=== PATIENT | female | born 1990 | race Caucasian/White ===

== ENCOUNTER 2019-05-23 20:36 | Emergency (ER) | payer MEDICAID ==
[~2019-05-23] VITALS: Ht 157.5 cm; Wt 90.3 kg
[2019-05-23 20:40] VITALS: BP 122/77
--- NOTE | 2019-05-23 20:47 | NUR ---
PT AMBULATED TO BED 7. PROVIDING URINE.
--- NOTE | 2019-05-23 20:57 | NUR ---
28/F PRESENTS TO ED, C/O SHARP, BURNING EPIGASTRIC PAIN, RADIATING DIFFUSELY AND TO MIDCHEST, X1 DAY. PT REPORTS NAUSEA, DENIES VOMITING, CONSTIPATION OR DIARRHEA. REPORTS LOOSE STOOL. PT AWAKE AND ALERT, SKIN NORMAL WARM AND DRY, LUNG SOUNDS CLEAR BL. BS ACTIVE X4, ABD SOFT ROUND TENDER DIFFUSELY, REPORTS RLQ TENDERNESS. HX GERD OTC MOTRIN AND OMEPREZOLE WITHOUT RELIEF.
--- NOTE | 2019-05-23 21:02 | NUR ---
Dr. Villasenor examining patient.
[2019-05-23] MEDS ORDERED: ALUMINUM HYD/MAG/SIMETHICONE 30 ML, DICYCLOMINE HCL LIQUID 20 MG, LIDOCAINE VISCOUS 2% ... PO ONE ×3 (21:05)
--- NOTE | 2019-05-23 21:12 | NUR ---
Ultrasound at bedside.
[2019-05-23 21:29] LABS: HEMATOCRIT 38.1 % (36-48); HEMOGLOBIN 12.8 g/dL (12.0-16.0); MEAN CORPUSCULAR HEMOGLOBIN 29 pg (27-31); MEAN CORPUSCULAR HGB CONC 34 g/dL (33-37); MEAN CORPUSCULAR VOLUME 86.1 fL (80-94); PLATELET COUNT (AUTO) 242 K/uL (140-450); RED BLOOD CELL COUNT(AUTO) 4.43 MIL/uL (4.20-5.40); WHITE BLOOD COUNT (AUTO) 16.9 K/uL (4.8-10.8)
[2019-05-23 21:31] LABS: APPEARANCE,URINE CLEAR (CLEAR); BILIRUBIN,URINE NEGATIVE (NEGATIVE); BLOOD, URINE 1+ (NEGATIVE); COLOR,URINE YELLOW (YELLOW); LEUKOCYTE ESTERASE ,URINE TRACE (NEGATIVE); NITRITE, URINE NEGATIVE (NEGATIVE); UGLUCOSE NEGATIVE (NEGATIVE)
[2019-05-23 21:45] LABS: ALBUMIN 3.9 g/dL (3.4-5.0); ANION GAP 11.6 (8-16); CARBON DIOXIDE 26.8 mmol/L (21-32); CREATININE 0.9 mg/dL (0.6-1.3); POTASSIUM 3.4 mmol/L (3.5-5.1); TOTAL BILIRUBIN 0.2 mg/dL (0.0-1.0)
[2019-05-23 21:46] LABS: EOSINOPHILS % (MANUAL) 3 % (0-4); LYMPHOCYTES % (MANUAL) 14 % (20-46)
[2019-05-23 21:50] LABS: RBC,URINE 0-5 /HPF (0-5); WBC,URINE 0-5 /HPF (0-5)
[2019-05-23 22:30] VITALS: BP 124/74
--- NOTE | 2019-05-23 22:30 | NUR ---
Patient discharged with v/s stable. Written and verbal after care instructions given and explained. Patient alert, oriented and verbalized understanding of instructions. Ambulatory with steady gait. All questions addressed prior to discharge. ID band removed. Patient advised to follow up with PMD. Rx of MOTRIN, PRILOSEC, NORCO given. Patient educated on indication of medication including possible reaction and side effects. Opportunity to ask questions provided and answered.
== END 2019-05-23 22:30 | disposition home or self-care (01) ==
LOC: MED 20:36
DX: R10.13 Epigastric pain (principal)
CPT/HCPCS: 36415; 76705; 80053; 81001; 83690; 85025; Q0092; 99284

== ENCOUNTER 2021-04-18 08:15 | Inpatient (IN) | payer MEDICAID, SELFPAY ==
[~2021-04-18] VITALS: Ht 154.9 cm; Wt 99.8 kg
--- NOTE | 2021-04-18 08:24 | NUR ---
Pt W/C assisted to ER bed 2.
--- NOTE | 2021-04-18 08:27 | NUR ---
Pt ambulated to restroom for UA collection.
[2021-04-18 08:28] VITALS: BP 134/85
--- NOTE | 2021-04-18 08:47 | NUR ---
Dr. Daugherty at pt bedside for further evaluation.
[2021-04-18] MEDS ORDERED: MORPHINE SULFATE 4 MG/ML SYR IVP ONE ×2 (08:50→10:40)
[2021-04-18] MEDS ORDERED: NACL 0.9% 1,000 ML IV ONE (08:50)
[2021-04-18] MEDS ORDERED: ONDANSETRON 4 MG/2 ML VIAL IVP ONE (08:50)
--- NOTE | 2021-04-18 09:04 | NUR ---
PT TAKEN TO CT VIA SIVA
--- NOTE | 2021-04-18 09:06 | NUR ---
BLOODWORK WALKED OVER TO LAB
--- NOTE | 2021-04-18 09:18 | NUR ---
Pt taken to ER bed 2 via daniel.
[2021-04-18 09:32] LABS: BASOPHILS # (AUTO) 0.1 K/uL (0.00-0.22); BASOPHILS % (AUTO) 0.3 % (0.0-2.0); EOSINOPHILS % (AUTO) 0.1 % (0.0-4.0); HEMATOCRIT 41.3 % (36-48); HEMOGLOBIN 14.1 g/dL (12.0-16.0); LYMPHOCYTES # (AUTO) 2.6 K/uL (2.5-16.5); LYMPHOCYTES % (AUTO) 14.5 % (20.5-51.1); MEAN CORPUSCULAR HEMOGLOBIN 29 pg (27-31); MEAN CORPUSCULAR HGB CONC 34 g/dL (33-37); MEAN CORPUSCULAR VOLUME 86.1 fL (80-94); MONOCYTES # (AUTO) 1.4 K/uL (0.8-1.0); MONOCYTES % (AUTO) 7.5 % (1.7-9.3); NEUTROPHILS # (AUTO) 14.2 K/uL (1.8-7.7); NEUTROPHILS % (AUTO) 77.6 % (42.2-75.2); PLATELET COUNT (AUTO) 293 K/uL (140-450); WHITE BLOOD COUNT (AUTO) 18.3 K/uL (4.8-10.8)
[2021-04-18 09:43] LABS: ALBUMIN 4.5 g/dL (3.4-5.0); ANION GAP 14.6 (8-16); CARBON DIOXIDE 26.1 mmol/L (21-32); CREATININE 0.8 mg/dL (0.6-1.3); POTASSIUM 3.7 mmol/L (3.5-5.1); TOTAL BILIRUBIN 0.4 mg/dL (0.0-1.0)
[2021-04-18] MEDS ORDERED: PIPERACILLIN/TAZOBACTAM 4.5 GM in DEXTROSE 5% 100 ML IV ONE (09:45)
[2021-04-18] MEDS ORDERED: PIPERACILLIN/TAZOBACTAM 4.5 GM VIAL IV ONE (09:47)
--- NOTE | 2021-04-18 09:55 | NUR ---
RIAN JIMENEZ SWAB WALKED OVER TO LAB
[2021-04-18] MEDS ORDERED: SYN.1 PO (10:02)
[2021-04-18 10:09] LABS: APPEARANCE,URINE HAZY (CLEAR); BILIRUBIN,URINE NEGATIVE (NEGATIVE); BLOOD, URINE TRACE-I (NEGATIVE); COLOR,URINE YELLOW (YELLOW); LEUKOCYTE ESTERASE ,URINE NEGATIVE (NEGATIVE); NITRITE, URINE NEGATIVE (NEGATIVE); UGLUCOSE NEGATIVE (NEGATIVE)
--- NOTE | 2021-04-18 10:32 | NUR ---
Pt resting, HOB elevated for comfort, VSS, will continue to monitor.
[2021-04-18 10:38] LABS: RBC,URINE 0-5 /HPF (0-5); WBC,URINE 0-5 /HPF (0-5)
[2021-04-18] MEDS ORDERED: POTASSIUM CHLORIDE 10 MEQ TABER PO PRN (10:40)
[2021-04-18] MEDS ORDERED: DOCUSATE SODIUM 100 MG GELCAP PO PRN (10:40)
[2021-04-18] MEDS ORDERED: ACETAMINOPHEN 325 MG TAB PO PRN (10:40)
[2021-04-18] MEDS ORDERED: guaiFENesin DM 200/20 MG-10 ML 10 ML UDC PO PRN (10:40)
[2021-04-18] MEDS ORDERED: ZOLPIDEM 5 MG TAB PO PRN (10:40)
--- NOTE | 2021-04-18 10:46 | NUR ---
XRAY BEDSIDE WITH PT
[2021-04-18] MEDS ORDERED: NACL 0.9% 1,500 ML IV SCH (11:00)
[2021-04-18] MEDS: ONDANSETRON 4 MG/2 ML VIAL IM/IVP PRN ×2 (11:03→15:28)
[2021-04-18] MEDS: DEXT 5% /NACL 0.9% 1,000 ML IV SCH ×2 (11:04→17:53)
--- NOTE | 2021-04-18 11:06 | NUR ---
US BEDSIDE WITH PT
[2021-04-18 11:17] LABS: BARBITURATE, URINE NEGATIVE ng/ml (NEG <=200); BENZODIAZEPINE, URINE NEGATIVE ng/mL (NEG <=200); CANNABINOID, URINE NEGATIVE ng/mL (NEG <=50); COCAINE, URINE NEGATIVE ng/mL (NEG <=300); OPIATE, URINE NEGATIVE ng/mL (NEG <=2000); PHENCYCLIDINE SCREEN,URINE NEGATIVE ng/mL (NEG <=25)
--- NOTE | 2021-04-18 11:40 | NUR ---
LAB BEDSIDE WITH PT
[2021-04-18 11:41] LABS: FREE T4 (FREE THYROXINE) 0.96 ng/dL (0.76-1.46); MAGNESIUM 1.8 mg/dL (1.8-2.4); THYROID STIMULATING HORMONE 0.74 uIU/mL (0.34-3.74)
--- NOTE | 2021-04-18 12:22 | NUR ---
PT RESTING BEDSIDE WITH EYES CLOSED. LIGHTS TURNED OFF FOR PT. BEDRAILS X2 UP AND BED IN LOWEST POSITION. EQUAL RISE AND FALL OF CHEST NOTED. VITAL SIGNS STABLE. WILL CONTUINE TO MONITOR
[2021-04-18 12:56] LABS: PROTHROMBIN TIME 9.9 secs (10.8-13.4)
--- NOTE | 2021-04-18 13:10 | NUR ---
PT RESTING, HOB LAYED FLAT FOR COMFORT, VSS, WILL CONTINUE TO MONITOR.
--- NOTE | 2021-04-18 13:42 | NUR ---
RECEIVED PATIENT REPORT FROM ER NURSE VIA TELEPHONE. AWAITING FOR PATIENT TO ARRIVE TO THE UNIT.
--- NOTE | 2021-04-18 13:50 | NUR ---
Patient will be admitted to care of CARLOS STRICKLAND. Admited to TELE. Will go to room 120B. Belongings list completed. Report to EN. NABILA
[2021-04-18 13:55] VITALS: BP 115/71
--- NOTE | 2021-04-18 13:55 | NUR ---
RECEIVED PATIENT FROM ER NURSE. PATIENT DIAGNOSIS IS ACUTE APPENDICITIS. PT IS AOX4, ABLE TO MAKE NEEDS KNOWN. RESPIRATIONS EVEN AND UNLABORED. ON ROOM AIR NO RESPIRATORY DISTRESS NOTED. SKIN IS WARM, DRY, AND INTACT. IV SITE ON LAC 20G INFUSING FLUIDS WELL. INTACT AND PATENT. ABD SOFT, ROUND, AND TENDER AT EPIGASTRIC REGION. COMPLAINS OF PAIN WHEN PALPATED 10/10. WILL MEDICATE WITH PRN PAIN MEDICATIONS ORDERED. AWAITING FOR SURGICAL INTERVENTION BY DR. WILLAMS. PLAN OF CARE DISCUSSED. SAFETY PRECAUTIONS IN PLACE. CALL LIGHT WITHIN REACH. WILL CONTINUE TO MONITOR.
--- NOTE | 2021-04-18 15:28 | NUR ---
PATIENT COMPLAINED OF NAUSEA. ADMINISTERED ZOFRAN IVP PRN PER MD ORDERED.
[2021-04-18 16:00] VITALS: BP 119/77
[2021-04-18] MEDS: PIPERACILLIN/TAZOBACTAM 3.375 GM in DEXTROSE 5% 50 ML IV SCH ×2 (17:53→23:15)
[2021-04-18] MEDS: MORPHINE SULFATE 2 MG/ML SYR IVP PRN (17:56)
--- NOTE | 2021-04-18 17:56 | NUR ---
PATIENT COMPLAINED OF 10/10 ABD PAIN. ADMINISTERED PRN PAIN MEDICATIONS PER MD ORDERED.
[2021-04-18] MEDS ORDERED: PIPERACILLIN/TAZOBACTAM 3.375 GM in DEXTROSE 5% 50 ML IV SCH (18:00)
--- NOTE | 2021-04-18 18:17 | NUR ---
PATIENT COMPLAINED OF FEELING HOT. ASSESS TEMPERATURE AND PATIENT'S TEMP WAS 100.7 ADMINISTERED TYLENOL PER MD ORDERED.
--- NOTE | 2021-04-18 19:25 | NUR ---
ENDORSED TO ARSON AND BOMB INVESTIGATOR NURSE FOR CONTINUITY OF CARE. PT IS STABLE.
--- NOTE | 2021-04-18 19:30 | NUR ---
RECEIVED CARE AND REPORT FROM DAYSHIFT RN. PATIENT TRACKING WITH EYES, ALERT AND ORIENTED X4 TO PERSON, PLACE, TIME AND EVENT. [facility] 15. PATIENT RESTING IN THE BED, HOB 30 DEGREES, LAYING IN A POSITION OF COMFORT. PATIENT CONNECTED TO TELE MONITOR AT BEDSIDE W/CONTINUOUS PULSE OXIMETER. PATIENT OXYGEN SATURATION 97%, RR 16, PATIENT CURRENTLY DENIES SOB AND DENIES DIFFICULTY BREATHING WHEN ASKED. PATIENT TELE MONITOR CURRENTLY SHOWS ST 105 HR, VS STABLE, NO SIGNS OF DISTRESS OBSERVED WHILE AT BEDSIDE. PATIENT HEART AND LUNGS AUSCULTATED, S1, S2 HEARD, LUNG SOUNDS CLEAR, EQUAL AND BILATERALLY. PATIENT IV SITE INCLUDES LEFT AC 20G. IV DRESSING DRY, SITE INTACT AND FLUSHING WELL, NO INFILTRATION OR PAIN AT SITE. PATIENT CURRENTLY ABLE TO USE BEDSIDE COMMODE WITH RN ASSISTANCE. SKINS INTACT AND EDUCATED PATIENT ON THE IMPORTANCE OF PREVENTING SKIN BREAKDOWN/PREVENTING PRESSURE SORES. PATIENT CURRENTLY BEING OFFLOADED WITH USE OF PILLOWS AND FREQUENT REPOSITIONING PROVIDED Q2. PROMOTING A RESTFUL HEALING ENVIRONMENT WITH DECREASED STIMULI IN THE ROOM. WILL CONTINUE TO REASSESS OFTEN, CLOSELY MONITOR AND FREQUENTLY ROUND THROUGHOUT THE SHIFT.
[2021-04-18 20:00] VITALS: BP 122/75
--- NOTE | 2021-04-18 20:46 | NUR ---
PATIENT RESTING IN A POSITION OF COMFORT, AIRWAY OPEN, CLEAR AND MAINTAINABLE, ROOM AIR, OXYGEN SATURATION 97%.NO OBVIOUS SIGNS OF DISTRESS OBSERVED WHILE AT BEDSIDE. VS STABLE. WILL CONTINUE TO CLOSELY MONITOR AND FREQUENTLY ROUND.
[2021-04-18] MEDS: HYDROcodone/APAP 7.5/325 MG 1 TAB PO PRN (21:19)
--- NOTE | 2021-04-18 21:19 | NUR ---
PRN PAIN MEDICATION GIVEN TO PATIENT ORDERED BY MD. VS STABLE, NO OBVIOUS SIGNS OF DISTRESS OBSERVED. WILL CONTINUE TO CLOSELY MONITOR.
--- NOTE | 2021-04-18 22:20 | NUR ---
PATIENT REASSESSED WITH PAIN, PATIENT STATED FEELING DECREASED PAIN AND ABLE TO REST MORE COMFORTABLY. INTERVENTIONS EFFECTIVE. VS STABLE, WILL CONTINUE TO CLOSELY MONITOR AND FREQUENTLY ROUND.
[2021-04-19] VITALS: BP 102/64
--- NOTE | 2021-04-19 00:08 | NUR ---
SCHEDULED MEDICATIONS GIVEN ORDERED BY MD, TOLERATING THERAPIES WELL. VS STABLE, NO OBVIOUS SIGNS OF DISTRESS OBSERVED WHILE AT BEDSIDE. WILL CONTINUE TO CLOSELY MONITOR AND FREQUENTLY ROUND.
[2021-04-19] MEDS: DEXT 5% /NACL 0.9% 1,000 ML IV SCH ×4 (00:35→21:30)
[2021-04-19] MEDS: HYDROcodone/APAP 7.5/325 MG 1 TAB PO PRN ×4 (01:30→22:27)
--- NOTE | 2021-04-19 01:30 | NUR ---
PRN PAIN MEDICATION GIVEN TO PATIENT FOR PAIN. VS STABLE, NO SIGNS OF DISTRESS OBSERVED WHILE AT BEDSIDE. WILL CONTINUE TO CLOSELY MONITOR AND FREQUENTLY ROUND.
--- NOTE | 2021-04-19 02:30 | NUR ---
PATIENT REASSESSED, STATED FEELING DECREASED PAIN, MORE COMFORTABLE TO CONTINUE TO TRY AND REST. PATIENT STATED THAT THE NORCO HELPS BETTER WITH THE PAIN THAN THE MORPHINE. INTERVENTIONS EFFECTIVE. WILL CONTINUE TO CLOSELY MONITOR AND FREQUENTLY ROUND.
[2021-04-19 04:00] VITALS: BP 125/68
--- NOTE | 2021-04-19 04:12 | NUR ---
MORNING CARE, SCHEDULED MEDICATIONS, SAFETY CHECKS, HYGIENE AND REPOSITIONING PROVIDED. VS STABLE, NO OBVIOUS SIGNS OF DISTRESS OBSERVED WHILE AT BEDSIDE. WILL CONTINUE TO CLOSELY MONITOR AND FREQUENTLY ROUND.
[2021-04-19] MEDS: PIPERACILLIN/TAZOBACTAM 3.375 GM in DEXTROSE 5% 50 ML IV SCH ×4 (05:13→23:35)
[2021-04-19 05:23] LABS: ANION GAP 9.9 (8-16); CARBON DIOXIDE 28.5 mmol/L (21-32); CREATININE 0.8 mg/dL (0.6-1.3); POTASSIUM 3.4 mmol/L (3.5-5.1)
[2021-04-19 05:42] LABS: BASOPHILS % (AUTO) 0.2 % (0.0-2.0); HEMATOCRIT 36.2 % (36-48); HEMOGLOBIN 12.2 g/dL (12.0-16.0); LYMPHOCYTES # (AUTO) 3.1 K/uL (2.5-16.5); LYMPHOCYTES % (AUTO) 17.6 % (20.5-51.1); MEAN CORPUSCULAR HEMOGLOBIN 29 pg (27-31); MEAN CORPUSCULAR HGB CONC 34 g/dL (33-37); MEAN CORPUSCULAR VOLUME 86.7 fL (80-94); MONOCYTES # (AUTO) 1.4 K/uL (0.8-1.0); NEUTROPHILS # (AUTO) 13.2 K/uL (1.8-7.7); NEUTROPHILS % (AUTO) 74.2 % (42.2-75.2); PLATELET COUNT (AUTO) 233 K/uL (140-450); RED BLOOD CELL COUNT(AUTO) 4.18 MIL/uL (4.20-5.40); RED CELL DISTRIBUTION WIDTH 13.5 % (11.6-13.7); WHITE BLOOD COUNT (AUTO) 17.7 K/uL (4.8-10.8)
--- NOTE | 2021-04-19 07:10 | NUR ---
RECEIVED BEDSIDE REPORT FROM DAY SHIFT NURSE FOR CONTINUITY OF CARE. PT IS AWAKE AND ALERT. A&OX4. ON RA WITH BREATHING UNLABORED. SR ON TELE MONITORING. SKIN IS WARM, DRY, AND INTACT. IV IS IN THE LEFT AC 20 GAUGE WITH FLUIDS INFUSING. PT IS STABLE AT THIS TIME. DENIES PAIN. PT IS STABLE. Addendum: 04/19/21 at 1789 by Ceci Beebe RN MANAGER OF PRODUCT NURSE
--- NOTE | 2021-04-19 07:30 | NUR ---
REPORT AND CARE ENDORSED TO GERARDO AU, VS TRENT.
--- NOTE | 2021-04-19 07:50 | NUR ---
PATIENT HAS BEEN SCREENED AND CATEGORIZED MODERATE NUTRITION RISK. PATIENT WILL BE SEEN WITHIN 3-5 DAYS OF ADMISSION. 04/21/2021-04/23/[address]
[2021-04-19 08:00] VITALS: BP 104/67
--- NOTE | 2021-04-19 08:38 | NUR ---
PT STATES PAIN IN THE ABDOMEN AT A SCALE OF 8/10, RADIATING TO THE BACK. ACHING IN CHARACTERISTIC. PT WAS GIVEN NORCO FOR PAIN. WILL CONTINUE TO MONITOR PAIN. POTASSIUM CHLORIDE 40 MEQ WAS GIVEN FOR POTASSIUM OF 3.4. MEDICATION EDUCATION WAS PROVIDED AND PT VERBALIZED UNDERSTANDING.
[2021-04-19] MEDS: PANTOPRAZOLE 40 MG TABEC PO SCH (08:39)
--- NOTE | 2021-04-19 08:58 | NUR ---
MISTY, PAPER CUTTER, INFORMED ME THAT THE SURGERY FOR PT IS MOVED UP TO 1130 AM INSTEAD OF 1535 PM.
--- NOTE | 2021-04-19 11:00 | NUR ---
PT IS SITTING AT BEDSIDE WITH VISITOR. NO DISTRESS NOTED. PT DENIES PAIN AT THIS TIME. PT ALSO DENIES N/V. BREATHING IS UNLABORED ON RA. WILL CONTINUE TO MONITOR.
[2021-04-19] MEDS ORDERED: PROPOFOL 200 MG/20 ML VIAL IV ONE (11:07)
[2021-04-19] MEDS ORDERED: MIDAZOLAM 2 MG/2 ML VIAL ONE (11:07)
[2021-04-19] MEDS ORDERED: fentaNYL citrate 0.05 MG/ML VIAL ONE (11:07)
[2021-04-19] MEDS ORDERED: SUCCINYLCHOLINE CHLORIDE 200 MG/10 ML VIAL IVP ONE (11:08)
[2021-04-19] MEDS ORDERED: LIDOCAINE 1% 500 MG/50 ML VIAL ONE (11:42)
[2021-04-19] MEDS ORDERED: BUPIVACAINE-MPF/EPI 0.25% 30 ML VIAL INJ ONE (11:42)
[2021-04-19] MEDS: ONDANSETRON 4 MG/2 ML VIAL IM/IVP PRN ×2 (11:53→18:15)
[2021-04-19 12:00] VITALS: BP 113/73
--- NOTE | 2021-04-19 12:03 | NUR ---
SURGEON, DR. SIERRA, AT BEDSIDE ASSESSING PT AND EXPLAINING PROCEDURE. ALL QUESTIONS ANSWERED. CONSENT OBTAINED.
--- NOTE | 2021-04-19 12:30 | NUR ---
MOTORIZED SQUAD COMMANDING OFFICER AT BEDSIDE TO ENERGY AND CONSERVATION TECHNICIAN PT FOR SURGERY. PT IS STABLE AT THIS TIME. ANSWERING QUESTIONS APPROPRIATELY. NO DISTRESS NOTED. PT WENT TO OR VIA BED.
[2021-04-19] MEDS ORDERED: ROCURONIUM 50 MG/5 ML VIAL IV ONE (12:45)
[2021-04-19] MEDS ORDERED: SEVOFLURANE 250 ML BTL INH ONE (12:45)
[2021-04-19] MEDS ORDERED: ONDANSETRON 4 MG/2 ML VIAL IVP PRN (13:25)
[2021-04-19] MEDS ORDERED: HYDROmorphone 1 MG/ML AMP IVP PRN (13:25)
[2021-04-19] MEDS ORDERED: MEPERIDINE 25 MG/ML SYR IVP PRN (13:25)
[2021-04-19] MEDS: LACTATED RINGERS 1,000 ML IV SCH ×2 (13:25→21:31)
[2021-04-19] MEDS ORDERED: diphenhydrAMINE 50 MG/ML VIAL IVP PRN (13:25)
[2021-04-19] MEDS ORDERED: SUGAMMADEX SODIUM 200 MG/2 ML VIAL IV ONE (13:35)
[2021-04-19] MEDS ORDERED: DEXAMETHASONE 4 MG/ML VIAL ONE (13:41)
[2021-04-19] MEDS ORDERED: ONDANSETRON 4 MG/2 ML VIAL ONE (13:41)
--- NOTE | 2021-04-19 14:32 | NUR ---
RECEIVED THE CALL THAT THE PT WILL BE RETURNING FROM POST OP SOON. WILL WAIT FOR PT TO ARRIVE.
--- NOTE | 2021-04-19 14:51 | NUR ---
PT ARRIVED BACK FROM THE O.R., PT IS STABLE. NO RESPIRATORY DISTRESS NOTED. 3 INCISIONS ON THE ABDOMEN WITH ALEXANDER ASCENCIO. PT DENIES PAIN AT THIS TIME. PT DENIES N/V. WILL CONTINUE TO MONITOR.
--- NOTE | 2021-04-19 15:26 | NUR ---
PT WAS GIVEN DILAUDID FOR PAIN ORDERED. PT STATES PAIN IN THE ABDOMEN AT A SCALE OF 8/10. PT SAYS THE PAIN IS ACHING AND BURNING IN CHARACTERISTIC. BP WAS 123/80 PRIOR TO ADMINISTRATION OF MEDICATION.
[2021-04-19 16:00] VITALS: BP 107/64
--- NOTE | 2021-04-19 18:10 | NUR ---
PT STATES SHE IS HAVING PAIN AT A SCALE OF 6/10 IN THE ABDOMEN. PT WAS GIVEN NORCO FOR PAIN. EDUCATION WAS PROVIDED ON MEDICATION AND SIDE EFFECTS. WILL CONTINUE TO MONITOR PAIN.
[2021-04-19 18:13] LABS: T4 (THYROXINE) 9.1 ug/dL (4.5 - 12.0)
--- NOTE | 2021-04-19 18:15 | NUR ---
PT WAS GIVEN ZOFRAN FOR NAUSEA. PT HAS NOT HAD AN EPISODE OF EMESIS. WILL CONTINUE TO MONITOR.
--- NOTE | 2021-04-19 19:25 | NUR ---
ENDORSED PT TO BEAD PICKER NURSE FOR CONTINUITY OF CARE. PT IS AWAKE AND ALERT. DENIES PAIN AT THIS TIME. PT IS STABLE. PLAN OF CARE DISCUSSED.
--- NOTE | 2021-04-19 19:30 | NUR ---
RECIEVED BEDSIDE ENDORSEMENT FROM DAY SHIFT RN, PT LYING IN BED W/ FAMILY MEMBER, A&0X4, ABLE TO MAKE NEEDS KNOWN AND FOLLOWS COMMANDS, ABLE TO USE BEDSIDE URINAL W/ ASSISTANCE, SR ON MONITOR, PT ON ROOM AIR, VSS, AFEBRIEL, LAC 20 G PIV INFUSING D5 NS @ 140MLS/HR, SKIN WARM DRY AND INTACT, NO SIGNS OF ACUTE DISTRESS, SAFETY MEASURES IN PLACE, WILL CONTINUE WITH CURRENT POC
[2021-04-19 20:00] VITALS: BP 104/67
--- NOTE | 2021-04-19 21:31 | NUR ---
HUNG NEW BAG OF D5 NS @ 140MLS/HR
--- NOTE | 2021-04-19 22:32 | NUR ---
PT COMPLAINING OF ABD PAIN, PAIN SCALE 5 OF 10, ADMINISTERED NORCO PER PROTOCOL AND AMBIEN SLEEPING MEDICATION PER PT REQUEST
--- NOTE | 2021-04-19 23:35 | NUR ---
ADMINISTERED 0000H MEDICATION PER MD ORDERS
--- NOTE | 2021-04-20 00:07 | NUR ---
PT ASLEEP, REFUSED TO HAVE VITALS TAKEN, WANTED TO BE LEFT ALONE TO SLEEP
--- NOTE | 2021-04-20 02:19 | NUR ---
PT ASLEEP AND SHOWING NO SIGNS OF ACUTE DISTRESS
[2021-04-20 04:00] VITALS: BP 128/75
[2021-04-20] MEDS: HYDROcodone/APAP 7.5/325 MG 1 TAB PO PRN ×2 (04:07→15:24)
--- NOTE | 2021-04-20 04:10 | NUR ---
ASSISTED PT TO USE BEDSIDE URINAL
[2021-04-20] MEDS: PIPERACILLIN/TAZOBACTAM 3.375 GM in DEXTROSE 5% 50 ML IV SCH ×2 (05:05→12:33)
--- NOTE | 2021-04-20 05:07 | NUR ---
ADMINISTERED 0600H MEDICATION PER MD ORDERS
[2021-04-20 05:08] LABS: BASOPHILS % (AUTO) 0.1 % (0.0-2.0); EOSINOPHILS % (AUTO) 0.1 % (0.0-4.0); HEMATOCRIT 37.6 % (36-48); HEMOGLOBIN 12.4 g/dL (12.0-16.0); LYMPHOCYTES # (AUTO) 2.8 K/uL (2.5-16.5); LYMPHOCYTES % (AUTO) 18.6 % (20.5-51.1); MEAN CORPUSCULAR HEMOGLOBIN 29 pg (27-31); MEAN CORPUSCULAR HGB CONC 33 g/dL (33-37); MEAN CORPUSCULAR VOLUME 88.4 fL (80-94); MONOCYTES # (AUTO) 1.3 K/uL (0.8-1.0); MONOCYTES % (AUTO) 8.4 % (1.7-9.3); NEUTROPHILS % (AUTO) 72.8 % (42.2-75.2); PLATELET COUNT (AUTO) 266 K/uL (140-450); RED BLOOD CELL COUNT(AUTO) 4.25 MIL/uL (4.20-5.40); RED CELL DISTRIBUTION WIDTH 13.2 % (11.6-13.7); WHITE BLOOD COUNT (AUTO) 15.1 K/uL (4.8-10.8)
[2021-04-20 05:17] LABS: ANION GAP 10.2 (8-16); CARBON DIOXIDE 28.4 mmol/L (21-32); CREATININE 0.8 mg/dL (0.6-1.3); POTASSIUM 3.6 mmol/L (3.5-5.1)
[2021-04-20] MEDS: DEXT 5% /NACL 0.9% 1,000 ML IV SCH ×2 (05:34→06:47)
[2021-04-20] MEDS: LACTATED RINGERS 1,000 ML IV SCH ×2 (06:05→14:25)
--- NOTE | 2021-04-20 07:28 | NUR ---
PT HAS BEEN ENDORSED BY VESSEL LINER FOR CONTINUITY OF CARE, POC DISCUSSED. PT IS RESTING COMFORTABLY IN PAIN, DENIES PAIN AT THIS TIME AND REPORTS ALL NEEDS ARE MET. REPORTS HAVING FLATULENCE BUT NOT HAVING A BOWEL MOVEMENT AT THIS TIME. PT IS STATUS POST OP FROM AN APPENDECTOMY. SHE IS ALERT AND ORIENTED X4, ON RA SATING AT 99%. PT HAS 2 INCISIONS FROM SURGERY. PT HAS NO FEVER AT THIS TIME. PT HAS A LEFT AC 20 G RUNNING D5 NS @ 140. ALL SAFETY MEASURES IN PLACE, CALL LIGHT WITHIN REACH. WILL CONTINUE TO MONITOR.
--- NOTE | 2021-04-20 07:33 | NUR ---
ENDORSED TO DAY SHIFT RN FOR CONTINUITY OF CARE
[2021-04-20] MEDS: PANTOPRAZOLE 40 MG TABEC PO SCH (09:54)
--- NOTE | 2021-04-20 12:00 | NUR ---
LATE ENTRY NOTE: 0900 PENDING SALE TO [facility] MEDICATION ADMINISTERED PER MD ORDER. PT EDUCATION PROVIDED. PT VERBALIZED UNDERSTANDING. PT VITAL SIGNS 97.7, RR 14, O2 99, BP 126/ 74, HR 73. PT REPORTS 2/10 PAIN AT THIS TIME. BROUGHT PT NEW CONTAINER OF WATER. EDUCATED PT ON NOT ALLOWING PAIN TO GETTING UNCONTROLLABLE. ALL SAFETY MEASURES IN PLACE, CALL LIGHT WITHIN REACH. WILL CONTINUE TO MONITOR.
[2021-04-20] MEDS ORDERED: DOCU-299 PO (12:23)
[2021-04-20] MEDS ORDERED: ACET-1182 PO (12:23)
[2021-04-20] MEDS ORDERED: PANT40EC56 PO (12:23)
[2021-04-20] MEDS: MORPHINE SULFATE 2 MG/ML SYR IVP PRN (12:39)
[2021-04-20 12:44] LABS: PHOSPHORUS 1.8 mg/dL (2.5-4.9)
--- NOTE | 2021-04-20 13:10 | NUR ---
TUCKER ABX ADMINISTERED PER MD ORDER, PT AMBULATED TO THE RESTROOM WITH A STEADY GAIT. PT REPORTED AN INCREASE IN PAIN, 6/10. MEDICATED PER MD ORDER. PT VITAL SIGNS ARE STABLE. ALL SAFETY MEASURES IN PLACE. CALL LIGHT WITHIN REACH. WILL CONTINUE TO MONITOR.
--- NOTE | 2021-04-20 15:21 | NUR ---
PT COMPLAINED OF MODERATE PAIN BEFORE DC, MEDICATED PER MD ORDER. PT EDUCATION PROVIDED. PT TOLERATED ADMINISTRATION.
--- NOTE | 2021-04-20 15:31 | NUR ---
PT HAS BEEN DC'D WITH HER , ARELIS. DISCHARGE EDUCATION GIVEN TO THE PT AND . EDUCATED ON ADVANCING THE DIET, FOLLOW UP WITH SURGEON AND PCP WITHIN 5 DAY. KEEP INCISIONS CLEAN DRY AND INTACT. EDUCATED ON NOT PICKING UP ANYTHING HEAVY UNTIL SURGEON GIVES HER THE CLEAR. EDUCATED ON DEEP BREATHING AND COUGHING TO PREVENT ATELECTASIS AFTER SURGERY. EDUCATED PT ON S/S TO MONITOR FOR, AND GO TO NEAREST EMERGENCY ROOM. PT AND VERBALIZED UNDERSTANDING. PT HAS ALL HER BELONGING, IV REMOVED AND CATH INTACT. PAIN MEDICATION GIVEN PRIOR TO DC FOR MOD. PAIN.
== END 2021-04-20 15:31 | disposition home or self-care (01) | DRG 710 ==
LOC: MED 08:15 → MTU 10:20
PROVIDERS: ADMIT Family Medicine; ATTEND Family Medicine
PROC: 0DTJ4ZZ Resection of Appendix, Percutaneous Endoscopic Approach (ICD-10-PCS; principal; 2021-04-19 09:00)
DX: A41.9 Sepsis, unspecified organism (principal); G93.41 Metabolic encephalopathy; E66.01 Morbid (severe) obesity due to excess calories; E83.39 Other disorders of phosphorus metabolism; E03.9 Hypothyroidism, unspecified; E86.0 Dehydration; K35.80 Unspecified acute appendicitis; Z68.41 Body mass index [BMI] 40.0-44.9, adult; Z20.822 Contact with and (suspected) exposure to COVID-19; K21.9 Gastro-esophageal reflux disease without esophagitis; E87.6 Hypokalemia; E78.1 Pure hyperglyceridemia; K76.0 Fatty (change of) liver, not elsewhere classified
CPT/HCPCS: 36415; 71045; 76705; 80048; 80053; 80305; 81001; 82150; 83036; 83690; 83735; 83880; 84100; 84436; 84439; 84443; 84479; 84484; 85025; 85610; 85730; 87081; 96361; 96365; 96375; 96376; 99285; J0330; J1100; J1170; J2001; J2175; J2250; J2270; J2405; J2543; J2704; J3010; J3490; J7030; J7060; J7120

== ENCOUNTER 2022-02-07 01:42 | Emergency (ER) | payer MEDICAID ==
[~2022-02-07] VITALS: Ht 154.9 cm; Wt 78.5 kg
[~2022-02-07 01:42] MED LIST: ACET-1182 PO; DOCU-299 PO; PANT40EC56 PO; SYN.1 PO
[2022-02-07 01:55] VITALS: BP 125/71
--- NOTE | 2022-02-07 02:00 | NUR ---
PT TAKEN TO BED 07.
[2022-02-07] MEDS ORDERED: FAMOTIDINE 20 MG TAB PO ONE (02:20)
[2022-02-07] MEDS ORDERED: DICYCLOMINE HCL LIQUID 20 MG, ALUMINUM HYD/MAG/SIMETHICONE 30 ML, LIDOCAINE VISCOUS 2% ... PO ONE ×3 (02:20)
[2022-02-07] MEDS ORDERED: ONDANSETRON 4 MG TAB PO ONE (02:25)
[2022-02-07 02:36] LABS: APPEARANCE,URINE CLEAR (CLEAR); BILIRUBIN,URINE NEGATIVE (NEGATIVE); BLOOD, URINE NEGATIVE (NEGATIVE); COLOR,URINE YELLOW (YELLOW); LEUKOCYTE ESTERASE ,URINE NEGATIVE (NEGATIVE); NITRITE, URINE NEGATIVE (NEGATIVE); UGLUCOSE NEGATIVE (NEGATIVE)
[2022-02-07] MEDS ORDERED: DICYCLOMINE HCL LIQUID 10 MG/5 ML UDC ONE (02:42)
[2022-02-07] MEDS ORDERED: ALUMINUM HYD/MAG/SIMETHICONE 30 ML UDC ONE (02:42)
[2022-02-07 02:46] LABS: BASOPHILS # (AUTO) 0.1 K/uL (0.00-0.22); BASOPHILS % (AUTO) 0.6 % (0.0-2.0); EOSINOPHILS # (AUTO) 0.1 K/uL (0-0.4); EOSINOPHILS % (AUTO) 1.3 % (0.0-4.0); HEMOGLOBIN 12.8 g/dL (12.0-16.0); LYMPHOCYTES # (AUTO) 3.3 K/uL (2.5-16.5); LYMPHOCYTES % (AUTO) 33.9 % (20.5-51.1); MEAN CORPUSCULAR HEMOGLOBIN 29 pg (27-31); MEAN CORPUSCULAR HGB CONC 34 g/dL (33-37); MEAN CORPUSCULAR VOLUME 86.8 fL (80-94); MONOCYTES # (AUTO) 0.8 K/uL (0.8-1.0); MONOCYTES % (AUTO) 7.9 % (1.7-9.3); NEUTROPHILS # (AUTO) 5.5 K/uL (1.8-7.7); NEUTROPHILS % (AUTO) 56.3 % (42.2-75.2); PLATELET COUNT (AUTO) 243 K/uL (140-450); RED BLOOD CELL COUNT(AUTO) 4.38 MIL/uL (4.20-5.40); RED CELL DISTRIBUTION WIDTH 13.2 % (11.6-13.7); WHITE BLOOD COUNT (AUTO) 9.8 K/uL (4.8-10.8)
--- NOTE | 2022-02-07 02:55 | NUR ---
PT WOKE UP AROUND 1 AM WITH SEVER EPIGASTRIC PAIN. PT TOOK OMEPRAZOLE BUT PAIN DID NOT GO AWAY. PAIN IS SHARP AND RADIATES TO BACK. PT HAS NAUSEA AND HEADACHE. SKIN IS PINK/WARM/DRY; AAOX4 WITH EVEN AND STEADY GAIT; LUNGS CLEAR BL; HR EVEN AND REGULAR; PT DENIES ANY FEVER, CP, SOB, OR COUGH AT THIS TIME; PATIENT STATES PAIN OF 8/10 AT THIS TIME; PT HAD APPENDIX REMOVED LAST YEAR. GASTRIC SLEEVE SURGERY A FEW MONTHS AGO RX: OMEPRAZOLE ALLERGIES: NKA
[2022-02-07 02:57] LABS: ALBUMIN 3.7 g/dL (3.4-5.0); ANION GAP 10.3 (8-16); CARBON DIOXIDE 27.4 mmol/L (21-32); CREATININE 0.8 mg/dL (0.6-1.3); POTASSIUM 3.7 mmol/L (3.5-5.1); TOTAL BILIRUBIN 0.3 mg/dL (0.0-1.0)
--- NOTE | 2022-02-07 03:54 | NUR ---
Patient appears to be resting comfortably in bed. Vital Signs within normal limits. Respirations even and unlabored.
[2022-02-07] MEDS ORDERED: [UNRECOGNIZED DRUG - CODE] PO (05:04)
[2022-02-07] MEDS ORDERED: ONDA-188 PO (05:04)
[2022-02-07] MEDS ORDERED: FAMO-90 PO (05:04)
[2022-02-07] MEDS ORDERED: OMEP40EC24 PO (05:04)
[2022-02-07 05:20] VITALS: BP 126/76
--- NOTE | 2022-02-07 05:20 | NUR ---
Patient discharged with v/s stable. Written and verbal after care instructions given and explained. Patient alert, oriented and verbalized understanding of instructions. Ambulatory with steady gait. All questions addressed prior to discharge. ID band removed. Patient advised to follow up with PMD. Rx of pink bismuth, papeci, prilosec, zofran odt given. Opportunity to ask questions provided and answered.
--- NOTE | 2022-02-07 05:32 | NUR ---
The patient's care was reviewed and supervised by Kelly Luong RN.
== END 2022-02-07 05:20 | disposition home or self-care (01) ==
LOC: MED 01:42
DX: K29.70 Gastritis, unspecified, without bleeding (principal); K21.9 Gastro-esophageal reflux disease without esophagitis; E03.9 Hypothyroidism, unspecified; Z90.49 Acquired absence of other specified parts of digestive tract; Z98.890 Other specified postprocedural states; Z79.899 Other long term (current) drug therapy
CPT/HCPCS: 36415; 80053; 81003; 81025; 83690; 85025; 87086; 99284; Q0162

== ENCOUNTER 2022-05-21 22:18 | Emergency (ER) | payer MEDICAID ==
[~2022-05-21] VITALS: Ht 154.9 cm; Wt 72.1 kg
[~2022-05-21 22:18] MED LIST changes: +FAMO-90 PO; +OMEP40EC24 PO; +ONDA-188 PO; +[UNRECOGNIZED DRUG - CODE] PO
[2022-05-21 22:48] VITALS: BP 111/77
--- NOTE | 2022-05-21 22:53 | NUR ---
PT TO LOBBY AFTER URINE COLLECTION.
--- NOTE | 2022-05-22 01:35 | NUR ---
PT TO BED AT THIS TIME WITH ERMD
[2022-05-22] MEDS ORDERED: DICYCLOMINE HCL LIQUID 20 MG, ALUMINUM HYD/MAG/SIMETHICONE 30 ML, LIDOCAINE VISCOUS 2% ... PO ONE ×3 (01:45)
[2022-05-22] MEDS ORDERED: DICYCLOMINE HCL LIQUID 10 MG/5 ML UDC ONE (01:49)
[2022-05-22] MEDS ORDERED: ALUMINUM HYD/MAG/SIMETHICONE 30 ML UDC ONE (01:49)
--- NOTE | 2022-05-22 01:51 | NUR ---
31 YO F BIB SELF FOR AB AND BACK PAIN X1 DAY PAIN 03/13. PT STATES N/V/D BUT DENIES FEVER . PT TESTED POSITIVE FOR COVID ON WEDNESDAY. PT TOOK OMEPRAZOLE TO HELP WITH ABDOMINAL PAIN BUT IT DID NOT HELP. PT STATES IT RADIATES TO BACK ON THE RIGHT SIDE. a&OX 4 AMBULATORY. VSS. X2 SIDE RAILS UP. LIGHTS OFF FOR COMFORT PMH: HYPOTHYROID, GASTRIC SLEEVE (AUGUST 2021) RX: LEVOTHYROXINE 112 MCG LMP : 05/08/22 LBM: 05/21/22
--- NOTE | 2022-05-22 02:05 | NUR ---
PT LEFT TO CT
[2022-05-22 02:10] LABS: BASOPHILS % (AUTO) 0.3 % (0.0-2.0); EOSINOPHILS # (AUTO) 0.1 K/uL (0-0.4); EOSINOPHILS % (AUTO) 0.7 % (0.0-4.0); HEMATOCRIT 41.3 % (36-48); LYMPHOCYTES # (AUTO) 3.4 K/uL (2.5-16.5); LYMPHOCYTES % (AUTO) 37.1 % (20.5-51.1); MEAN CORPUSCULAR HEMOGLOBIN 29 pg (27-31); MEAN CORPUSCULAR HGB CONC 34 g/dL (33-37); MEAN CORPUSCULAR VOLUME 86.8 fL (80-94); MONOCYTES # (AUTO) 0.6 K/uL (0.8-1.0); MONOCYTES % (AUTO) 6.7 % (1.7-9.3); NEUTROPHILS % (AUTO) 55.2 % (42.2-75.2); PLATELET COUNT (AUTO) 297 K/uL (140-450); RED BLOOD CELL COUNT(AUTO) 4.76 MIL/uL (4.20-5.40); WHITE BLOOD COUNT (AUTO) 9.2 K/uL (4.8-10.8)
[2022-05-22 02:15] LABS: APPEARANCE,URINE SL CLOUDY (CLEAR); BILIRUBIN,URINE NEGATIVE (NEGATIVE); BLOOD, URINE TRACE-I (NEGATIVE); COLOR,URINE YELLOW (YELLOW); LEUKOCYTE ESTERASE ,URINE NEGATIVE (NEGATIVE); NITRITE, URINE NEGATIVE (NEGATIVE); UGLUCOSE NEGATIVE (NEGATIVE)
[2022-05-22 02:38] LABS: ANION GAP 12.3 (8-16); CARBON DIOXIDE 30.1 mmol/L (21-32); CREATININE 0.7 mg/dL (0.6-1.3); POTASSIUM 4.4 mmol/L (3.5-5.1); TOTAL BILIRUBIN 0.2 mg/dL (0.0-1.0)
--- NOTE | 2022-05-22 03:35 | NUR ---
PROVIDED PT WITH BLANKET. PT RESTING X2 SIDE RAILS UP
[2022-05-22] MEDS ORDERED: NACL 0.9% 1,000 ML IV ONE (04:40)
[2022-05-22] MEDS ORDERED: MAG-27 PO (06:23)
[2022-05-22 06:41] VITALS: BP 115/76
--- NOTE | 2022-05-22 06:41 | NUR ---
Patient discharged with v/s stable. Written and verbal after care instructions given and explained. Patient alert, oriented and verbalized understanding of instructions. Ambulatory with steady gait. All questions addressed prior to discharge. ID band removed. Patient advised to follow up with PMD. Rx of MYLANTA given. Opportunity to ask questions provided and answered.
== END 2022-05-22 06:41 | disposition home or self-care (01) ==
LOC: MED 22:18
DX: K21.9 Gastro-esophageal reflux disease without esophagitis (principal); E03.9 Hypothyroidism, unspecified; Z98.890 Other specified postprocedural states
CPT/HCPCS: 36415; 74176; 80053; 81003; 81025; 83690; 85025; 99285; J7030